=== PATIENT | male | born 1950 | race Caucasian/White ===

== ENCOUNTER 2019-02-24 07:34 | Day surgery (SDC) | payer MEDICARE ==
[2019-02-24] MEDS ORDERED: PROPOFOL 10 MG/ML VIAL IV ONE (07:35)
[2019-02-24] MEDS ORDERED: LIDOCAINE 2% MDV (20MG/ML) 20ML VIAL IV ONE (07:35)
--- NOTE | 2019-02-28 07:50 | Operative Note ---
OPERATION: COLONOSCOPY to the cecum with cold snare polypectomy x3, mixed cold and electrocautery snare polypectomy x1. INDICATION: Positive Cologuard test. This is the patient's first colonoscopy. ANESTHESIA: Intravenous sedation was administered by the department of anesthesiology and included Diprivan titrated to effect. PROCEDURE: Following informed consent from this alert individual including a discussion of the risks and benefits of the procedure and an opportunity for the patient to ask questions, the patient was in the left lateral decubitus position. A digital rectal examination was performed. No abnormalities were noted. Following this, the Olympus [id number] video colonoscope was inserted into the rectum without resistance. The rectal mucosa had a normal appearance with normal folds and distensibility. The colonoscope was advanced up through the colon to the level of the cecum without much difficulty. Throughout the bowel the mucosa appeared normal, the folds were normal, and the bowel was fairly well distensible. The cecum was defined by noting the appendiceal orifice and ileocecal valve. From the base of the cecum, the colonoscope was slowly withdrawn. The colon preparation overall was good. In the cecum, there was a sessile flat 1.5 cm adenomatous-appearing polyp which was removed predominantly with cold snare polypectomy in piecemeal fashion with one application of the snare electrocautery was used as well. The polyp was suctioned through a colonoscope into a collection trap. There was a smaller 5 mm polyp also noted in the cecum removed with cold snare polypectomy. There was a 3rd polyp in the ascending colon measuring 5 mm in size removed with cold snare polypectomy and a 4th polyp in the sigmoid colon also 5 mm in size removed with cold snare polypectomy. No other changes were noted until the rectum was reached. Retroflexion in the rectum revealed small internal hemorrhoids. The endoscope was straightened and removed. The patient tolerated the procedure well and was returned to the recovery area in stable condition. IMPRESSION: 1. A 1.5 cm cecal polyp removed as described above with electrocautery snare and cold snare polypectomy in piecemeal fashion. 2. A 5 mm ascending colon polyp removed with cold snare. 3. A sigmoid polyp removed with cold snare polypectomy. 4. A second cecal polyp measuring 5 mm in size removed with cold snare polypectomy. 5. Small internal hemorrhoids. RECOMMENDATIONS: Further recommendations will be forthcoming pending results of pathology obtained today. I will most likely recommend a recheck colonoscopy for surveillance in 1 year's time. Followup will be with Dr. Todd. As always, thank you for allowing me to participate in the care of your patient. ROCHELLE
== END 2019-02-24 10:03 | disposition home or self-care (01) ==
LOC: HOP 07:34
PROVIDERS: ATTEND Internal Medicine Gastroenterology
DX: Z12.11 Encounter for screening for malignant neoplasm of colon (principal); D12.0 Benign neoplasm of cecum; D12.2 Benign neoplasm of ascending colon; K63.5 Polyp of colon